=== PATIENT | male | born 1985 | race Caucasian/White ===

== ENCOUNTER 2017-01-14 14:01 | Emergency (ER) | payer MEDICAID ==
[~2017-01-14] VITALS: Ht 175.3 cm; Wt 84.1 kg
[~2017-01-14 14:01] MED LIST: CITA-70 PO; DOCU250C4 PO
[2017-01-14 14:13] VITALS: BP 109/67
--- NOTE | 2017-01-14 15:16 | NUR ---
PATIENT TO BED 4.
--- NOTE | 2017-01-14 15:20 | NUR ---
31M BIB SELF C/O CONSTIPATION X 10 YEARS AND VOMITING X 5 DAYS; PT STATES HAS NOT VOMITED TODAY, AND HAS BOWEL MOVEMENTS EVERY 2 WEEKS; ABDOMEN SOFT, NON-TENDER, ACTIVE BOWEL SOUNDS X 4 QUADRANTS; PT STATES NO PAIN AT THIS TIME, BUT STATES " IT HURTS SOMWHERE IN MY STOMACH, BUT I DON'T KNOW WHERE. I'M NOT A PROFESSIONAL, BUT IT DOESN'T HURT RIGHT NOW"; PT AA&OX4, PERRLA, BL LUNG SOUNDS CLEAR, RR EVEN/UNLABORED, SKIN IS WARM/DRY/INTACT AT THIS TIME; STEADY GAIT; PT RESTING IN BED WITH HOB ELEVATED AND IN LOWEST POSITION; POSITIONED FOR COMFORT; ER MD MADE AWARE OF STATUS. WILL CONTINUE TO MONITOR.
--- NOTE | 2017-01-14 15:24 | NUR ---
ER MD DR. GALEANO EVALUATING PT AT BEDSIDE.
[2017-01-14] MEDS ORDERED: KETOROLAC 60 MG/2 ML VIAL IM ONE (15:35)
--- NOTE | 2017-01-14 15:53 | NUR ---
XRAT AT BEDSIDE.
[2017-01-14 16:43] VITALS: BP 129/79
--- NOTE | 2017-01-14 16:43 | NUR ---
Patient discharged with v/s stable. Written and verbal after care instructions given and explained. Patient alert, oriented and verbalized understanding of instructions. Ambulatory with steady gait. All questions addressed prior to discharge. ID band removed. Patient advised to follow up with PMD. Rx of ZOFRAN ODT 4MG given. Patient educated on indication of medication including possible reaction and side effects. Opportunity to ask questions provided and answered.
== END 2017-01-14 16:43 | disposition home or self-care (01) ==
LOC: MED 14:01
DX: K59.00 Constipation, unspecified (principal)
CPT/HCPCS: 74000; 81002; 96372; 99283; J1885; Q0092

== ENCOUNTER 2017-01-29 09:56 | Emergency (ER) | payer MEDICAID ==
[~2017-01-29] VITALS: Ht 175.3 cm; Wt 88.5 kg
[2017-01-29 10:21] VITALS: BP 148/78
--- NOTE | 2017-01-29 12:08 | NUR ---
Patient ambulated to OF to be evaluated as fast track by Dr. Briceno.
--- NOTE | 2017-01-29 12:12 | NUR ---
Dr. Briceno evaluating patient in OF.
--- NOTE | 2017-01-29 12:15 | NUR ---
PT PRESENTS TO ER FOR W/C/O VOMITING X3 THIS AM. PT DENIES ANY ABDOMINAL PAIN OR DIARRHEA. DENIES DIARRHEA; SKIN IS PINK/WARM/DRY; AAOX4 WITH EVEN AND STEADY GAIT; LUNGS CLEAR BL; HR EVEN AND REGULAR; PT DENIES ANY FEVER, CP, SOB, OR COUGH AT THIS TIME; PATIENT STATES PAIN OF 0/10 AT THIS TIME; VSS; PATIENT POSITIONED FOR COMFORT; HOB ELEVATED; BEDRAILS UP X2; BED DOWN. ER MD MADE AWARE OF PT STATUS.
[2017-01-29 12:27] VITALS: BP 148/78
--- NOTE | 2017-01-29 12:27 | NUR ---
Patient discharged with v/s stable. Written and verbal after care instructions given and explained. Patient alert, oriented and verbalized understanding of instructions. Ambulatory with steady gait. All questions addressed prior to discharge. ID band removed. Patient advised to follow up with PMD. Rx of COLACE AND ZOFRAN given. Patient educated on indication of medication including possible reaction and side effects. Opportunity to ask questions provided and answered.
== END 2017-01-29 12:27 | disposition home or self-care (01) ==
LOC: MED 09:56
DX: K59.00 Constipation, unspecified (principal); R11.10 Vomiting, unspecified; R03.0 Elevated blood-pressure reading, without diagnosis of hypertension; Z79.899 Other long term (current) drug therapy
CPT/HCPCS: 99283